=== PATIENT | male | born 1975 | race Caucasian/White ===

== ENCOUNTER → 2017-01-17 | Outpatient (CLI) | payer OTHER ==
--- NOTE | 2017-01-17 15:42 | KCIC ---
Lumbar spine, 3 views, 01/17/2017: HISTORY: Low back pain extending to groin and thighs The lumbar vertebral heights are well maintained. No fracture or dislocation is identified. There are minimal scattered marginal spurs. There are mild degenerative changes involving the facet joints in the lower lumbar spine. The paraspinal soft tissues are unremarkable. IMPRESSION: 1. Mild scattered degenerative changes. 2. No acute bony abnormality is detected. Electronically signed by: Rudolph Dixon MD (01/17/2017 3:38 PM) [id number]
== END | disposition home or self-care (01) ==
LOC: KCIC 14:27
PROVIDERS: ATTEND Orthopaedic Surgery
DX: M47.896 Other spondylosis, lumbar region (principal)
CPT/HCPCS: 72100